=== PATIENT | female | born 1980 | race Caucasian/White ===

== ENCOUNTER → 2021-07-10 14:06 | Outpatient (BNVA) | payer OTHER, SELFPAY | PROVIDERS: PCP Family Medicine; Visit Provider Family Medicine | DX: Z01.419 Encounter for gynecological examination (general) (routine) without abnormal findings (principal) | CPT/HCPCS: 87624 ==

== ENCOUNTER → 2021-07-12 08:57 | Outpatient (BNVA) | payer OTHER, SELFPAY | PROVIDERS: PCP Family Medicine; Visit Provider Family Medicine | DX: Z00.00 Encounter for general adult medical examination without abnormal findings (principal); Z13.220 Encounter for screening for lipoid disorders | CPT/HCPCS: 80053; 80061; 85025 ==

== ENCOUNTER 2021-08-09 10:25 | Outpatient (CLI) | payer OTHER, SELFPAY ==
--- NOTE | 2021-08-09 10:32 | MM_ITS ---
WS: [id number] VIEWS: MLO and CC views both breasts. 3D digital tomosynthesis is also included in this exam. No prior studies. Findings: 8 mm nodular density seen in the central posterior depth of the right breast on the cc view only. The re is also a questionable 8 mm nodular density seen in the central left breast directly behind the ni pple at mid depth on the cc view only. No architectural distortion or suspicious calcification. Hete rogeneously dense breasts. Compression spot imaging as well as regional ultrasound of both breasts wo uld be indicated for further workup. MM/[place] [id number] Impression: BI-RADS: 0-Incomplete: Need additional imaging evaluation FOLLOW-UP: See Report This mammogram was also analyzed by the Computer Aided Detection System R2 Imag e Flow Nurse.
== END 2021-08-09 10:26 | disposition home or self-care (01) ==
LOC: RAD 10:25
PROVIDERS: PCP Family Medicine; Visit Provider Family Medicine
DX: Z12.31 Encounter for screening mammogram for malignant neoplasm of breast (principal)
CPT/HCPCS: 77063; 77067

== ENCOUNTER 2021-08-13 13:00 | Outpatient (CLI) | payer OTHER, SELFPAY ==
--- NOTE | 2021-08-13 13:10 | MM_ITS ---
WS: [id number] BILATERAL 3D TOMOSYNTHESIS DIGITAL DIAGNOSTIC MAMMOGRAPHY WITH CAD CLINICAL INFORMATION: ABNORMAL MAMMOGRAM COMPARISON: August 09, 2021 TECHNIQUE: Bilateral CC, MLO, and ML views. FINDINGS: The breasts are composed of heterogeneous fibroglandular density, which can limit the detection of sm all underlying mass lesions. Previously described small asymmetric densities only well seen on the cc views unchanged from previous. ULTRASOUND BREAST BILATERAL TECHNIQUE: Ultrasound bilateral breast focused area of concern. CLINICAL INFORMATION: ABNORMAL MAMMOGRAM FINDINGS: RIGHT BREAST: Ultrasound RIGHT breast at the 12:00 and 6 clock position. Simple cyst at the 2:00 posi tion measuring 8 x 5 mm. Dense underlying parenchyma tissue. Incidental ductal ectasia. No other abno rmalities RIGHT breast. LEFT BREAST: Ultrasound LEFT breast at the 12:00 position. Incidental ductal ectasia. Dense underlyin g parenchymal tissue. No suspicious abnormality is in the LEFT breast. MM/[id number] IMPRESSION: BI-RADS: 2-Benign FOLLOW UP: 1 Year Follow-up Recommend return to annual screening mammography.
== END 2021-08-13 13:01 | disposition home or self-care (01) ==
LOC: RAD 13:01
PROVIDERS: PCP Family Medicine; Visit Provider Family Medicine
DX: R92.8 Other abnormal and inconclusive findings on diagnostic imaging of breast (principal)
CPT/HCPCS: 76642; 77062

== ENCOUNTER → 2023-03-25 09:43 | Outpatient (BNVA) | payer OTHER, SELFPAY | PROVIDERS: PCP Family Medicine; Visit Provider Family Medicine | DX: Z00.00 Encounter for general adult medical examination without abnormal findings (principal); Z51.81 Encounter for therapeutic drug level monitoring; Z13.220 Encounter for screening for lipoid disorders; D64.9 Anemia, unspecified | CPT/HCPCS: 80053; 80061; 83550; 85025 ==

== ENCOUNTER 2024-04-01 08:23 | Outpatient (CLI) | payer OTHER, SELFPAY ==
--- NOTE | 2024-04-01 08:20 | MM_ITS ---
WS: [id number] BILATERAL SCREENING DIGITAL TOMOSYNTHESIS MAMMOGRAM WITH CAD HISTORY: Screening COMPARISON: 08/13/2021, 08/09/2021 Bilateral CC and MLO views with tomosynthesis and synthetic mammography submitted. Computer aided detection analyzed. Breast composition: The breasts are extremely dense, which lowers the sensitivity of mammography. No suspicious masses, microcalcifications or architectural distortion. Bilateral scattered asymmetries in each breast. MM/MM scr tomosynthesis [id number] IMPRESSION: BI-RADS: 2 - Benign FOLLOW UP: 1 Year Follow-up
== END 2024-04-01 08:24 | disposition home or self-care (01) ==
PROVIDERS: PCP Family Medicine; Visit Provider Family Medicine
DX: Z12.31 Encounter for screening mammogram for malignant neoplasm of breast (principal); R92.343 Mammographic extreme density, bilateral breasts; N64.89 Other specified disorders of breast
CPT/HCPCS: 77063; 77067